=== PATIENT | male | born 1985 | race Asian ===

== ENCOUNTER 2017-08-21 14:00 | Outpatient (CLI) | payer BC ==
[2017-08-22 11:13] LABS: *MUMPS AB (IGG) 94.7 AU/mL (Immune >10.9); *RUBEOLA AB (IGG) >300.0 AU/mL (Immune >29.9); RUBELLA ANTIBODIES, IGG 1.39 index (Immune >0.99); VARICELLA ZOSTER IgG 190 index (Immune >165)
== END 2017-08-21 23:59 | disposition home or self-care (01) ==
LOC: LAB 14:00
PROVIDERS: ATTEND Nurse Practitioner Acute Care
DX: Z00.01 Encounter for general adult medical examination with abnormal findings (principal)
CPT/HCPCS: 36415; 86706; 86735; 86762; 86765; 86787

== ENCOUNTER 2018-07-27 12:47 | Outpatient (CLI) | payer BC | END 2018-07-27 23:59 | disposition home or self-care (01) | LOC: MSC 12:47 | PROVIDERS: ATTEND Nurse Practitioner Acute Care | DX: J06.9 Acute upper respiratory infection, unspecified (principal); F90.9 Attention-deficit hyperactivity disorder, unspecified type; Z79.899 Other long term (current) drug therapy ==

== ENCOUNTER 2018-08-27 14:46 | Outpatient (CLI) | payer BC ==
[2018-08-27 14:52] VITALS: BP 130/72
== END 2018-08-27 23:59 | disposition home or self-care (01) ==
LOC: MSC 14:46
PROVIDERS: ATTEND Nurse Practitioner Acute Care
DX: F90.9 Attention-deficit hyperactivity disorder, unspecified type (principal)

== ENCOUNTER 2018-10-08 15:33 | Outpatient (CLI) | payer BC ==
[2018-10-15 13:45] VITALS: BP 161/93
== END 2018-10-08 23:59 | disposition home or self-care (01) ==
LOC: MSC 15:33
PROVIDERS: ATTEND Nurse Practitioner Acute Care
DX: R03.0 Elevated blood-pressure reading, without diagnosis of hypertension (principal); E66.9 Obesity, unspecified; Z68.28 Body mass index [BMI] 28.0-28.9, adult; Z71.3 Dietary counseling and surveillance; F90.9 Attention-deficit hyperactivity disorder, unspecified type

== ENCOUNTER 2019-05-23 11:27 | Outpatient (CLI) | payer SELFPAY | END 2019-05-23 23:59 | disposition home or self-care (01) | LOC: CL 11:27 → LAB 23:59 | PROVIDERS: ATTEND Nurse Practitioner Acute Care | DX: J09.X2 Influenza due to identified novel influenza A virus with other respiratory manifestations (principal) ==